=== PATIENT | female | born 1970 | race Caucasian/White ===

== ENCOUNTER → 2016-10-13 | Outpatient (CLI) | payer MEDICAID ==
[~2016-10-13] MED LIST: ATORVASTATIN CA20 MG PO; CLONAZEPAM0.5 M1 PO; FLEXERIL10 MG PO; LEVOTHYROXIN0.125 MG PO; LORATADINE 10MG10 M1 PO; MEDROL 4MG. DOSE4 MG PO; PAXIL20 M1 PO; PREDNISONE 20MG20 MG PO; PROZAC 20MG CAP20 MG PO; SEROQUEL50 MG PO; TRAMADOL 50MG T50 MG PO; TYLENOL W/CODEI1 TA2 PO; ULTRAM 50 MG TA50 MG PO; VOLTAREN75 MG PO
--- NOTE | 2016-10-17 15:43 | RADIOLOGY REPORT PS360 ---
DIG MAMM-SCREEN DEBBY W/CAD CAD Screening ORDERING PHYSICIAN : EFREM LEE APRNPATIENT AGE: 46 years GENDER: Female COMPARISON: Previous mammograms: April 2014 baseline mammogram INDICATION: Routine screening 46-year-old. No hormones. No new complaints.. Family history. Maternal grandmother breast cancer in her 60s TECHNIQUE: Standard CC and MLO images were obtained. R2 CAD reviewed. FINDINGS: Moderate density breast bilaterally do somewhat decreased sensitivity but there is no no dominant mass nor suspicious calcifications architectural distortion either breast. No significant new findings. . Low threshold for ultrasound suggested to particularly if any palpable areas should arise RIGHT BREAST: No significant new findings. Similar architecture and glandular pattern. Follow-up in one year adequate LEFT BREAST: No significant new findings. Again fairly dense breast with no new features mild ductal prominence retroareolar region left more so than right IMPRESSION: Stable bilateral mammogram. No areas of significant concern. No interval change since 2014 The Moderately dense breast pattern somewhat decreases sensitivity of mammography BI-RADS CATEGORY: 2_Benign RECOMMENDED FOLLOWUP: 12M 12 MONTH FOLLOW-UP (A letter has been sent to the patient regarding results of the study.)
== END ==
LOC: RAD 10-11 10:00
DX: Z12.31 Encounter for screening mammogram for malignant neoplasm of breast (principal)
CPT/HCPCS: G0202